=== PATIENT | female | born 1945 | race Caucasian/White ===

== ENCOUNTER 2021-04-22 09:09 | Outpatient (CLI) | payer MEDICARE ==
[~2021-04-22 09:09] MED LIST: AMIO200T67 PO; ASPI-1265 PO; ATOR20TA PO; CARCD120C PO; ERGO500054 PO; WARF-55 PO
== END 2021-04-22 23:59 | disposition home or self-care (01) ==
LOC: RT 09:09
PROVIDERS: ATTEND Internal Medicine Cardiovascular Disease
DX: R06.02 Shortness of breath (principal); Z79.899 Other long term (current) drug therapy
CPT/HCPCS: 94010; 94727; 94729

== ENCOUNTER 2021-12-04 15:46 | Outpatient (CLI) | payer MEDICARE | END 2021-12-04 23:59 | disposition home or self-care (01) | LOC: RT 15:46 | PROVIDERS: ATTEND Family Medicine | DX: R06.02 Shortness of breath (principal); T46.2X5A Adverse effect of other antidysrhythmic drugs, initial encounter; Y92.89 Other specified places as the place of occurrence of the external cause | CPT/HCPCS: 94010; 94727; 94729 ==

== ENCOUNTER 2023-06-30 07:13 | Day surgery (SDC) | payer MEDICARE ==
[2023-06-26 12:34] LABS: BASOPHILS # (AUTO) 0.1 X10'3 (0-0.2); BASOPHILS % (AUTO) 0.7 % (0-1); EOSINOPHILS # (AUTO) 0.1 X10'3 (0-0.9); EOSINOPHILS % (AUTO) 1.9 % (0-6); HEMATOCRIT 39.7 % (35.0-45.0); LYMPHOCYTES # (AUTO) 1.9 X10'3 (1.1-4.8); LYMPHOCYTES % (AUTO) 25.2 % (21-51); MEAN CORPUSCULAR HEMOGLOBIN 27.9 PG (27.0-31.0); MEAN CORPUSCULAR HGB CONC 32.8 g/dL (33.0-36.5); MEAN PLATELET VOLUME 9.2 FL (7.4-10.4); MONOCYTES # (AUTO) 0.5 X10'3 (0-0.9); MONOCYTES % (AUTO) 7.4 % (2-12); NEUTROPHILS # (AUTO) 4.8 X10'3 (1.8-7.7); NEUTROPHILS % (AUTO) 64.8 % (42-75); PLATELET COUNT 232 X10'3 (140-440); RED BLOOD COUNT 4.67 X10'6 (4.20-5.60); RED CELL DISTRIBUTION WIDTH 16.6 % (11.5-14.5); WHITE BLOOD COUNT 7.4 X10'3 (4.5-11.0)
[2023-06-26 12:47] LABS: ALBUMIN 3.4 G/DL (3.4-5.0); ANION GAP 11 (8-16); BLOOD UREA NITROGEN 20 MG/DL (7-18); BUN/CREATININE RATIO 25.6 (10.0-20.0); CALCIUM 8.9 MG/DL (8.5-10.1); CHLORIDE 106 MMOL/L (99-107); CREATININE 0.78 MG/DL (0.40-0.90); GLUCOSE 105 MG/DL (70-104); POTASSIUM 4.4 MMOL/L (3.5-5.1); SODIUM 141 MMOL/L (135-145); TOTAL CARBON DIOXIDE 23.9 MMOL/L (24-32); eGFR 71 ML/MIN
[~2023-06-30] VITALS: Ht 157.5 cm; Wt 88.5 kg
[2023-06-30] VITALS (18 sets, daily range): BP systolic 88–111; BP diastolic 51–66; PULSE 46–92; RESP 12–28; TEMP 98; O2SAT 91–95
[2023-06-30] MEDS ORDERED: ATEN-27 PO (07:43)
[2023-06-30] MEDS ORDERED: APIX5TAB3 PO (07:43)
[2023-06-30] MEDS ORDERED: FURO-150 PO (07:43)
[2023-06-30] MEDS ORDERED: DILT-94 PO (07:43)
[2023-06-30] MEDS ORDERED: amiodarone 150mg/dext, iso-os 100 ML IV ONE (07:50)
[2023-06-30] MEDS ORDERED: normal saline 1000ml 1,000 ML IV SCH (07:50)
[2023-06-30] MEDS ORDERED: diphenhydrAMINE 25mg capsule PO ONE (07:50)
[2023-06-30] MEDS ORDERED: atropine 0.1mg/ml 10ml syringe IV ONE (07:50)
[2023-06-30] MEDS ORDERED: MIDAZolam 1mg/ml 10ml vial IV ONE (07:50)
[2023-06-30] MEDS ORDERED: morphine 10mg/ml inj. IV ONE (07:50)
[2023-06-30] MEDS ORDERED: LORazepam 0.5 MG tablet PO ONE (07:50)
== END 2023-06-30 10:35 | disposition home or self-care (01) ==
LOC: SSTAY O 07:13
PROVIDERS: ATTEND Internal Medicine Cardiovascular Disease
DX: I48.0 Paroxysmal atrial fibrillation (principal); I34.0 Nonrheumatic mitral (valve) insufficiency; G47.30 Sleep apnea, unspecified; I11.0 Hypertensive heart disease with heart failure; I50.30 Unspecified diastolic (congestive) heart failure; E78.5 Hyperlipidemia, unspecified; E66.3 Overweight; Z68.34 Body mass index [BMI] 34.0-34.9, adult; M85.80 Other specified disorders of bone density and structure, unspecified site; Z79.82 Long term (current) use of aspirin; Z79.899 Other long term (current) drug therapy; Z79.01 Long term (current) use of anticoagulants; Z98.42 Cataract extraction status, left eye; Z96.653 Presence of artificial knee joint, bilateral; Z98.890 Other specified postprocedural states; Z88.1 Allergy status to other antibiotic agents; Z91.040 Latex allergy status; Z82.49 Family history of ischemic heart disease and other diseases of the circulatory system
CPT/HCPCS: 36415; 80048; 85025; 85610; 92960; 93005; 93312; 93325; 94760; J2250; J2274; J7030; A4620

== ENCOUNTER 2024-07-13 07:06 | Day surgery (SDC) | payer MEDICARE, OTHER ==
[2024-07-12 13:47] LABS: BASOPHILS # (AUTO) 0.1 X10'3 (0-0.2); BASOPHILS % (AUTO) 0.8 % (0-1); EOSINOPHILS # (AUTO) 0.2 X10'3 (0-0.9); HEMATOCRIT 41.1 % (35.0-45.0); HEMOGLOBIN 13.3 g/dl (12.0-16.0); LYMPHOCYTES # (AUTO) 1.6 X10'3 (1.1-4.8); LYMPHOCYTES % (AUTO) 19.7 % (21-51); MEAN CORPUSCULAR HEMOGLOBIN 27.7 PG (27.0-31.0); MEAN CORPUSCULAR HGB CONC 32.3 g/dL (33.0-36.5); MEAN CORPUSCULAR VOLUME 85.7 FL (78-98); MEAN PLATELET VOLUME 8.5 FL (7.4-10.4); MONOCYTES # (AUTO) 0.6 X10'3 (0-0.9); MONOCYTES % (AUTO) 7.2 % (2-12); NEUTROPHILS # (AUTO) 5.8 X10'3 (1.8-7.7); NEUTROPHILS % (AUTO) 70.3 % (42-75); PLATELET COUNT 277 X10'3 (140-440); RED BLOOD COUNT 4.79 X10'6 (4.20-5.60); WHITE BLOOD COUNT 8.2 X10'3 (4.5-11.0)
[2024-07-12 13:52] LABS: ALBUMIN 3.3 G/DL (3.4-5.0); ANION GAP 14 (8-16); BLOOD UREA NITROGEN 15 MG/DL (7-18); BUN/CREATININE RATIO 19.5 (10.0-20.0); CALCIUM 8.7 MG/DL (8.5-10.1); CHLORIDE 106 MMOL/L (99-107); CREATININE 0.77 MG/DL (0.40-0.90); GLUCOSE 110 MG/DL (70-104); POTASSIUM 4.5 MMOL/L (3.5-5.1); SODIUM 143 MMOL/L (135-145); TOTAL CARBON DIOXIDE 23.5 MMOL/L (24-32); eGFR 72 ML/MIN
[2024-07-12 13:54] LABS: INR 1.1 INR; PROTHROMBIN TIME 11.9 SECONDS (9.0-12.0)
[2024-07-13] VITALS (11 sets, daily range): BP systolic 79–98; BP diastolic 45–57; PULSE 56–96; RESP 12–18; TEMP 98.1; O2SAT 94–96
[~2024-07-13] VITALS: Ht 157.5 cm; Wt 88.2 kg
[~2024-07-13 07:06] MED LIST changes: -AMIO200T67 PO; +APIX5TAB3 PO; +ATEN-27 PO; -CARCD120C PO; +DILT-94 PO; -ERGO500054 PO; +FURO-150 PO; -WARF-55 PO
[2024-07-13] MEDS ORDERED: normal saline 1000ml 1,000 ML IV SCH (07:35)
[2024-07-13] MEDS ORDERED: LORazepam 0.5 MG tablet PO ONE (07:35)
[2024-07-13] MEDS ORDERED: amiodarone 150mg/dext, iso-os 100 ML IV ONE (07:35)
[2024-07-13] MEDS ORDERED: atropine 0.1mg/ml 10ml syringe IV ONE (07:35)
[2024-07-13] MEDS ORDERED: diphenhydrAMINE 25mg capsule PO ONE (07:35)
[2024-07-13] MEDS ORDERED: FLEC100T2 PO ×2 (07:41)
[2024-07-13] MEDS ORDERED: DABI150C PO (07:41)
[2024-07-13] MEDS: MIDAZolam 1mg/ml 10ml vial IV ONE (09:40)
[2024-07-13] MEDS: morphine 10mg/ml inj. IV ONE (09:40)
[2024-07-13] MEDS ORDERED: FLEC100T3 PO (11:28)
== END 2024-07-13 10:55 | disposition home or self-care (01) ==
LOC: SSTAY O 07:06
PROVIDERS: ATTEND Internal Medicine Cardiovascular Disease
DX: I48.0 Paroxysmal atrial fibrillation (principal); I11.0 Hypertensive heart disease with heart failure; I50.30 Unspecified diastolic (congestive) heart failure; I65.29 Occlusion and stenosis of unspecified carotid artery; E78.5 Hyperlipidemia, unspecified; G47.30 Sleep apnea, unspecified; Z90.49 Acquired absence of other specified parts of digestive tract; Z96.653 Presence of artificial knee joint, bilateral; Z98.42 Cataract extraction status, left eye; Z98.890 Other specified postprocedural states; Z91.040 Latex allergy status; Z88.1 Allergy status to other antibiotic agents; Z79.82 Long term (current) use of aspirin; Z79.899 Other long term (current) drug therapy
CPT/HCPCS: 36415; 80048; 85025; 85610; 92960; 93005; J2250; J2270; J7030; J2274

== ENCOUNTER 2025-06-19 06:17 | Day surgery (SDC) | payer MEDICARE, OTHER ==
[2025-06-14 11:08] LABS: MEAN PLATELET VOLUME 7.8 FL (7.4-10.4); PRE OP HEMATOCRIT 40.2 % (35.0-45.0); PRE OP HEMOGLOBIN 13.1 g/dL (12.0-16.0); PRE OP PLATELET COUNT 263 X10'3 (140-440); PRE OP WHITE BLOOD COUNT 7.0 10'3 (4.8-10.8); RED CELL DISTRIBUTION WIDTH 16.3 % (11.5-14.5)
[2025-06-14 11:50] LABS: CREATININE 0.57 MG/DL (0.40-0.90); PRE OP ALT 23 U/L (30-65); PRE OP ANION GAP 8 (8-16); PRE OP AST 21 U/L (10-37); PRE OP BILIRUB, TOTAL 0.5 MG/DL (0.0-1.0); PRE OP GLUCOSE 105 MG/DL (70-104); PRE OP POTASSIUM 4.5 MMOL/L (3.4-5.1); PRE OP SODIUM 142 MMOL/L (135-145); TOTAL CARBON DIOXIDE 28.3 MMOL/L (24-32); eGFR > 90 ML/MIN
[~2025-06-19] VITALS: Ht 154.9 cm; Wt 81.4 kg
[2025-06-19] VITALS (11 sets, daily range): BP systolic 101–136; BP diastolic 58–73; PULSE 44–62; RESP 12–19; TEMP 96.8; O2SAT 93–95
[~2025-06-19 06:17] MED LIST changes: -APIX5TAB3 PO; +CHOL50004 PO; +DABI150C PO; +FLEC100T2 PO; +FLEC50TA PO; -FURO-150 PO
[2025-06-19] MEDS ORDERED: BUPIVAcaine/PF 2.5mg/ml (0.25%) 10ml vial ONE (06:36)
[2025-06-19] MEDS ORDERED: LIDOcaine 2% (20mg/ml) 5ml vial ONE (06:36)
[2025-06-19] MEDS: ringers solution, lacted 1,000 ML IV SCH (06:49)
[2025-06-19] MEDS ORDERED: fentaNYL/PF 50MCG/1 ML 2ML syringe ONE (07:34)
[2025-06-19] MEDS ORDERED: midazolam 1 mg/ML 2ml injection ONE (07:34)
[2025-06-19] MEDS ORDERED: propofol inj 20 ML IV ONE (07:47)
[2025-06-19] MEDS ORDERED: acetaminophen 1,000mg/100ml IV 100 ML IV PRN (07:55)
[2025-06-19] MEDS ORDERED: ringers solution, lacted 1,000 ML IV SCH (07:55)
[2025-06-19] MEDS ORDERED: hydrALAZINE 20mg/ml inj. IV PRN (07:55)
[2025-06-19] MEDS ORDERED: labetalol 20mg/4ml (5mg/ml) syringe IV PRN (07:55)
[2025-06-19] MEDS ORDERED: ondansetron/PF 4mg/2ml inj IV PRN (07:55)
[2025-06-19] MEDS ORDERED: HYDROmorphone/PF 0.2 MG/ML SYRINGE IV PRN (07:55)
[2025-06-19] MEDS: BUPIVAcaine/PF 2.5mg/ml (0.25%) 10ml vial IJ ONE (08:08)
--- NOTE | 2025-06-19 11:07 | OPERATIVE REPORT ---
Operative Report Providers to ~ Date of Procedure: Jun 19, 2025 Pre-Operative Diagnosis: Left wrist carpal tunnel syndrome Post-Operative Diagnosis SAME as PRE-Op Procedure Performed Left wrist open carpal tunnel Surgeon: Donato Street MD Cashiers Supervisor None Anesthesiologist: Valencia Hudson Type of Anesthesia: Other Findings: Estimated Blood Loss: None Specimen Removed: None Description of Procedure: The patient is a 80-year-old woman with a carpal tunnel syndrome refractory to nonsurgical treatment. Surgery is indicated to relieve symptoms. After consent was obtained the the patient is brought to the operating room where the arm was prepped and draped in the usual manner. Time-out procedure was identified and local anesthetic was then infiltrated proximal to the volar wrist crease. Tourniquet was elevated on the forearm and straight incision was made in the palm 3 cm in length ulnar to the thenar crease in line with the radial side of the ring finger. An incision was made through skin and dissection was done through the deeper tissues to the transverse carpal ligaments. A small opening was made in the ligament and the nerve was identified. It was protected while the ligament was divided distally to the transverse arch and then proximally to the wrist crease followed by division of the forearm fascia. The nerve was decompressed at this point and. The incision was irrigated and closed with nylon suture. A sterile dressing was applied and the tourniquet was released. The hand perfused well and she was taken to the recovery room in stable condition and tolerated the procedure well. DONATO STREET Jr., MD Jun 19, 2025 11:06
== END 2025-06-19 09:35 | disposition home or self-care (01) ==
LOC: PAS 06:17
PROVIDERS: ATTEND Orthopaedic Surgery Hand Surgery
DX: G56.02 Carpal tunnel syndrome, left upper limb (principal); M18.12 Unilateral primary osteoarthritis of first carpometacarpal joint, left hand; M19.042 Primary osteoarthritis, left hand; I48.91 Unspecified atrial fibrillation; I10 Essential (primary) hypertension; Z98.890 Other specified postprocedural states; M19.90 Unspecified osteoarthritis, unspecified site; Z87.440 Personal history of urinary (tract) infections; M19.041 Primary osteoarthritis, right hand; Z79.899 Other long term (current) drug therapy
CPT/HCPCS: 36415; 64721; 80053; 82948; 85025; A4215; A6449; J2003; J2250; J2704; J3010; J3490; J7030; J7120; Z7506; Z7512; Z7610